=== PATIENT | female | born 1950 | race Caucasian/White ===

== ENCOUNTER → 2017-01-24 | Outpatient (CLI) | payer MEDICARE, OTHER ==
--- NOTE | 2017-01-24 11:34 | CT ---
EXAM DESCRIPTION: Abdomen/Pelvis w/wo Contrast CLINICAL HISTORY: GENERALIZED ABDOMINAL PAIN COMPARISON: None. TECHNIQUE: Pre and postcontrast CT images of the abdomen and pelvis are obtained. This exam was performed according to our departmental dose-optimization program, which includes automated exposure control, adjustment of the mA and/or kV according to patient size and/or use of iterative reconstruction technique . FINDINGS: The visualized lung bases show no acute findings. Liver is heterogeneous and mostly decreased attenuation compared to the spleen. Localized area of fat sparing in the region of the gallbladder fossa is seen. No focal hepatic mass is identified. Spleen, pancreas, adrenal glands, and gallbladder are unremarkable. Moderate atherosclerotic disease is seen. Kidneys show no abnormal calcifications. No ureteral obstruction is seen. Urinary bladder is contracted and not well evaluated. Small less than 1 cm fluid attenuation parapelvic cysts are seen in both kidneys. There is surgical absence of uterus. No abnormal adnexal masses seen. Appendix is normal. Small fat-containing umbilical hernia seen. No small bowel obstruction. The stomach is not well distended or evaluated. Moderate scattered diverticuli are seen throughout the entire colon. There is a localized area of bowel wall thickening associated with diverticulum in the left mid abdomen best seen on image 46 of series 4. Surrounding fat stranding is seen. No free intraperitoneal air or drainable fluid collection is seen at this time. No pathologic lymphadenopathy. Osseous structures show no aggressive bony lesions. Degenerative changes of the lumbar spine are seen. IMPRESSION: Extensive colon diverticulosis. Evidence of likely acute diverticulitis involving the mid left descending colon without complicating features at this time. Other findings as described in body of the report. Electronically signed by: Manpreet Conner MD 01/24/2017 11:32 AM CDT
== END ==
LOC: GMA 10:24
PROVIDERS: ATTEND Physician Assistant
DX: R10.84 Generalized abdominal pain (principal); K57.30 Diverticulosis of large intestine without perforation or abscess without bleeding; K42.9 Umbilical hernia without obstruction or gangrene

== ENCOUNTER 2017-04-12 05:53 | Day surgery (SDC) | payer MEDICARE, OTHER ==
[2017-04-12] MEDS ORDERED: LACTATED RINGERS 1,000 ML ONE (06:12)
[2017-04-12] MEDS ORDERED: PROPOFOL 200 MG/20 ML VIAL IV ONE (07:00)
[2017-04-12] MEDS ORDERED: LIDOCAINE 1% 10 ML VIAL INJ ONE (07:00)
[2017-04-12 08:47] VITALS: O2SAT 97
--- NOTE | 2017-04-12 08:53 | OP ---
DATE OF PROCEDURE: 04/12/17 PREPROCEDURE DIAGNOSIS: 1. History of diverticulitis. 2. This is the patient's first colonoscopy. POSTPROCEDURE DIAGNOSIS: 1. Multiple colonic polyps. 2. Rodríguez diverticulosis. 3. Internal hemorrhoids. PROCEDURE: 1. Colonoscopy with polypectomy. SURGEON: Rafael Cardenas MD. SEDATION: Monitored anesthesia care. ESTIMATED BLOOD LOSS: Less than 5 mL. PROCEDURE: Informed consent was obtained prior to sedation. The preprocedure cardiopulmonary assessment was satisfactory. The patient was brought to the Endoscopy Suite and placed in the left lateral decubitus position. The patient was then sedated by the anesthesia team. Digital rectal exam was unremarkable. The tip of the Olympus colonoscope was inserted into the rectum and advanced under direct visualization to the cecum as identified by the presence of the appendiceal orifice and ileocecal valve. Preparation of the colon was adequate. Upon reaching the cecum, the endoscope was slowly withdrawn from the patient with careful attention paid to the entire colonic mucosa for the identification of any flat polyps. There were two 4-mm polyps, which were sessile, in the cecum, and one 3-mm sessile polyp in the ascending colon. All three polyps were resected with cold snare polypectomy and retrieved. They were then sent for pathology analysis. Throughout the colon, there was marked diverticulosis. A retroflexed view of the anal verge showed small, non- bleeding internal hemorrhoids. The endoscope was then withdrawn from the patient and the procedure terminated. RECOMMENDATION: 1. Discharge the patient home with escort. 2. Advance to regular diet. 3. Continue present medications. 4. Followup pathology results. 5. Surveillance colonoscopy in three years' time. #[id number] [facility] SYSTEMNatalya
[2017-04-12 09:50] VITALS: BP 174/85; TEMP 98
[2017-04-12] MEDS ORDERED: MIDAZOLAM INJ 2 MG/2 ML VIAL IV ONE (10:00)
[2017-04-12] MEDS ORDERED: fentaNYL CITRATE INJ 50 MCG/ML AMP IV ONE (10:00)
== END 2017-04-12 09:05 | disposition home or self-care (01) ==
LOC: AMB 05:53
PROVIDERS: ATTEND Internal Medicine Gastroenterology
DX: D12.0 Benign neoplasm of cecum (principal); K64.8 Other hemorrhoids; K57.30 Diverticulosis of large intestine without perforation or abscess without bleeding; F41.9 Anxiety disorder, unspecified; I10 Essential (primary) hypertension; E78.5 Hyperlipidemia, unspecified; Z87.891 Personal history of nicotine dependence; Z88.8 Allergy status to other drugs, medicaments and biological substances; Z79.1 Long term (current) use of non-steroidal anti-inflammatories (NSAID); Z79.899 Other long term (current) drug therapy
CPT/HCPCS: 00810; 45385; 88305; J2250; J3010; J3490; J7120

== ENCOUNTER → 2017-08-01 | Outpatient (CLI) | payer MEDICARE, OTHER | LOC: GMAM 12:42 | PROVIDERS: ATTEND Family Medicine | DX: E53.8 Deficiency of other specified B group vitamins (principal) ==

== ENCOUNTER 2018-02-04 10:37 | Emergency (ER) | payer MEDICARE, OTHER ==
[2018-02-04] MEDS ORDERED: predniSONE 20 MG TAB PO ONE (11:09)
[2018-02-04] MEDS ORDERED: MECLIZINE HCL 12.5 MG TAB PO ONE (11:09)
[2018-02-04] MEDS ORDERED: ALPRAZolam 0.25 MG TAB PO ONE (11:09)
--- NOTE | 2018-02-04 11:18 | ED.PDOC ---
History of Present Illness - General Chief Complaint: General Stated Complaint: dizzy, feels jittery, off balance Time Seen by Provider: 02/04/18 10:44 Source: patient Exam Limitations: no limitations - History of Present Illness Initial Comments: the patient is a 67-year-old female presenting to emergency room secondary to another very brief episode of vertigo followed bysubsequent dizziness. The vertigo itself probably lasted less than a minute and she has had dizziness for the 15-20 minutes since it has occurred. She does not appear to be having true vertigo upon arrival here. She does not claim that she is currently having vertigo symptoms just dizziness at this point. No focal neurological changes otherwise. No abnormal nystagmus at this time. She has actually had multiple episodes of vertigo in the past and does follow Dr. Bates for this problem. She has had an MRI of the brain in 2016 for this problem that was essentially normal. She takes a Xanax nightly she says for this problem. She does have seasonal allergies and has recently had a seasonal allergy layer. Tympanic membranes are both 4 when she does have effusions behind both eardrums. She also did just recently have carotid Dopplers that were essentially normal according to her. Again physical exam shows no focal neurological deficits but she is obviously dizzy with walking. No focal weakness. No abnormal nystagmus. No vertical skew deviation. She does not have any headache or fever. She feels jittery and a little bit cold. She definitely has seasonal allergies flaring currently. It is possible she may also be starting to have an upper respiratory tract infection.the patient does have known vitamin B12 deficiency but is also receiving current supplementation in the form of routine injections. Timing/Duration: unsure Severity: moderate Improving Factors: nothing Worsening Factors: movement Associated Symptoms: denies symptoms Allergies/Adverse Reactions: Allergies Codeine Adverse Reaction (Verified 10/29/13 14:06) Propoxyphene [From Darvon] Adverse Reaction (Verified 04/10/17 09:48) Sulfa Antibiotics Adverse Reaction (Verified 10/29/13 14:06) Zinc Adverse Reaction (Verified 04/10/17 09:48) Home Medications: Ambulatory Orders Alprazolam [Alprazolam Odt] 0.25 mg PO BEDTIME 05/06/16 Benazepril & Hydrochlorothiazi [Benazepril HCl/Hydrochlor 20-25 mg] 1 tab PO BEDTIME 05/06/16 Cetirizine HCl [All Day Allergy] 10 mg PO BEDTIME 05/06/16 Estradiol 1 mg PO BEDTIME 05/06/16 Pravastatin Sodium [Pravachol] 80 mg PO BEDTIME 05/06/16 Calcium Carbonate-Vitamin D [Oscal 500/200 D-3] 1 tab PO BID 04/10/17 Ibuprofen 200 mg PO PRN PRN 04/10/17 Meclizine HCl [Meclizine 25] 25 mg PO Q6HRS PRN #30 tab 02/04/18 Review of Systems - Review of Systems Constitutional: States: no symptoms reported EENTM: States: nose congestion Respiratory: States: other - she does have a little hoarseneess which she both gets with her seasonal allergies and with colds Cardiology: States: no symptoms reported Gastrointestinal/Abdominal: States: no symptoms reported Genitourinary: States: no symptoms reported Musculoskeletal: States: no symptoms reported Skin: States: no symptoms reported Neurological: States: other - dizziness Endocrine: States: no symptoms reported All other Systems: No Change from Baseline Past Medical History (General) - Patient Medical History Hx Seizures: No Hx Stroke: No Hx Asthma: No Hx of COPD: No Hx Cardiac Disorders: No Hx Congestive Heart Failure: No Hx Pacemaker: No Hx Hypertension: Yes Hx Thyroid Disease: No Hx Diabetes: No Hx Cancer: No Hx MRSA: No Surgical History: Hysterectomy - Vaccination History Hx Tetanus, Diphtheria Vaccination: No Hx Influenza Vaccination: No Hx Pneumococcal Vaccination: Yes - Social History Hx Tobacco Use: Yes Hx Alcohol Use: Yes - occasional Hx Substance Use: No - Female History Patient is a Female of Child Bearing Age (10 -59 yrs old): No - Triage Comment ED Triage Comment: PT assisted to stretcher. Family Medical History - Family History Mother Hx Family Cancer: Yes Physical Exam - Physical Exam General Appearance: Alert, Anxious, No apparent distress Eye Exam: bilateral normal Ears, Nose, Throat: hearing grossly normal, normal pharynx, nasal congestion, other - bilateral tympanic membrane show increased pressure and air-fluid levels Neck: full range of motion, supple Respiratory: lungs clear, normal breath sounds, no respiratory distress, no accessory muscle use Cardiovascular/Chest: normal peripheral pulses, regular rate, rhythm, no edema Peripheral Pulses: radial,right: 2+, radial,left: 2+, dorsalis pedis,right: 2+, dorsalis pedis,left: 2+ Gastrointestinal/Abdominal: non tender, soft Rectal Exam: deferred Back Exam: normal inspection, no CVA tenderness, no vertebral tenderness Extremity: normal range of motion, non-tender, normal inspection, no pedal edema , no calf tenderness, normal capillary refill Neurologic: lapel stitcher II-XII nml as tested, no motor/sensory deficits, alert, normal mood/affect, oriented x 3 Skin Exam: normal color Comments: Vital Signs - 24 hr 02/04/18 10:53 Temperature 97.6 F Pulse Rate [ 81 Left Brachial] Respiratory 20 Rate Blood Pressure 135/87 [Left Arm] O2 Sat by Pulse 99 Oximetry Progress - Progress Progress: 02/04/18 12:22 the patient is a 67-year-old female presenting to the emergency room secondary to a recurrent episode of vertigo and itts residual dizziness. The vertigo had actually passed by the time she arrived here. She received a dose of oral Xanax and meclizine for the dizziness. After the patient was watched for several hours, she was doing much better. The patient has already been extensively worked up with Dr. Bates for the vertigo and it appears that labyrinthitis is the most likely cause, likely triggered by the allergies this time. She was given 1 dose of oral prednisone here. I'm going to write her for meclizine for as needed use for any recurrences. She does understand how to use this medication. She should contact Dr. Bates's office and let them know that she did have another episode. ER warnings were given for any significant worsening. Keep routine follow-up with primary care doctor for long -term medical problems including the B12 deficiency. - EKG/XRAY/CT CT Ordered: No CT Interpretation Call Back: No Departure - Departure Clinical Impression: Vertigo, Seasonal allergies Disposition: Discharge to Home or Self Care Condition: Good Departure Forms: ED Discharge - Pt. Copy, Patient Portal Self Enrollment Instructions: Labyrinthitis, Vertigo (a Type of Dizziness) (DC), Seasonal Allergies (DC) Diet: regular diet Activity: increase activity as tolerated Referrals: DALJIT SANTANA FNP [Primary Care Provider] - 1-2 Weeks Prescriptions: Meclizine HCl [Meclizine 25] 25 mg PO Q6HRS PRN #30 tab PRN Reason: Dizziness Home Medications: Ambulatory Orders Alprazolam [Alprazolam Odt] 0.25 mg PO BEDTIME 05/06/16 Benazepril & Hydrochlorothiazi [Benazepril HCl/Hydrochlor 20-25 mg] 1 tab PO BEDTIME 05/06/16 Cetirizine HCl [All Day Allergy] 10 mg PO BEDTIME 05/06/16 Estradiol 1 mg PO BEDTIME 05/06/16 Pravastatin Sodium [Pravachol] 80 mg PO BEDTIME 05/06/16 Calcium Carbonate-Vitamin D [Oscal 500/200 D-3] 1 tab PO BID 04/10/17 Ibuprofen 200 mg PO PRN PRN 04/10/17 Meclizine HCl [Meclizine 25] 25 mg PO Q6HRS PRN #30 tab 02/04/18 Additional Instructions: the patient is a 67-year-old female presenting to the emergency room secondary to a recurrent episode of vertigo and itts residual dizziness. The vertigo had actually passed by the time she arrived here. She received a dose of oral Xanax and meclizine for the dizziness. After the patient was watched for several hours, she was doing much better. The patient has already been extensively worked up with Dr. Bates for the vertigo and it appears that labyrinthitis is the most likely cause, likely triggered by the allergies this time. She was given 1 dose of oral prednisone here. I'm going to write her for meclizine for as needed use for any recurrences. She does understand how to use this medication. She should contact Dr. Bates's office and let them know that she did have another episode. ER warnings were given for any significant worsening. Keep routine follow-up with primary care doctor for long -term medical problems including the B12 deficiency.
[2018-02-04 11:51] VITALS: O2SAT 96
[2018-02-04 12:26] VITALS: BP 151/87; TEMP 97.8
== END 2018-02-04 12:39 | disposition home or self-care (01) ==
LOC: ER 10:37
DX: R42 Dizziness and giddiness (principal); J30.2 Other seasonal allergic rhinitis; I10 Essential (primary) hypertension; Z87.891 Personal history of nicotine dependence; Z79.899 Other long term (current) drug therapy; Z88.8 Allergy status to other drugs, medicaments and biological substances; Z88.2 Allergy status to sulfonamides; Z88.5 Allergy status to narcotic agent

== ENCOUNTER → 2018-02-07 | Outpatient (CLI) | payer MEDICARE, OTHER | LOC: GMAM 10:50 | PROVIDERS: ATTEND Family Medicine | DX: E53.8 Deficiency of other specified B group vitamins (principal); R42 Dizziness and giddiness ==

== ENCOUNTER → 2018-06-26 | Outpatient (CLI) | payer MEDICARE, OTHER | LOC: GMAM 10:49 | PROVIDERS: ATTEND Family Medicine | DX: E53.8 Deficiency of other specified B group vitamins (principal) ==

== ENCOUNTER → 2018-06-27 | Outpatient (CLI) | payer MEDICARE, OTHER ==
--- NOTE | 2018-06-27 16:25 | MRI ---
EXAM DESCRIPTION: Brain w/wo Contrast: Magnetic Resonance Imaging. CLINICAL HISTORY: 68 years Female VERTIGO COMPARISON: MRI scan of the brain without and with gadolinium IV contrast 12/09/2015. TECHNIQUE: Multiplanar, high-field MRI, multiple conventional sequences, without and with gadolinium IV contrast. No adverse reactions. Multiple axial diffusion sequences. FINDINGS: Bilateral multifocal hyperintense FLAIR and T2-weighted signal in the white matter lanza radiata extending from the basal ganglia to the bilateral centrum semiovale. Also bilateral hyperintense signal in the more superior subcortical white matter of the lanza radiata. Most of the abnormal signal in the basal ganglia is in the frontal lobes. No hemorrhage, no cerebral edema, no mass-effect, and no diffusion restriction. Normal contrast enhancement. Normal signal in the brainstem and cerebellar hemispheres. No hemorrhage, no cerebral edema, no mass-effect. Normal contrast enhancement. Concordance of the diffusion and non-diffusion sequences with no evidence of acute or subacute infarction. Cortical sulci, ventricles, and other CSF spaces, and the subdural spaces are normally configured for patients age.. No effacement or displacement. No midline shift. No extra-axial hemorrhage. Normal contrast enhancement. Normal flow signal void in the major vessels of the moapa Maier, and the venous sinuses. IACs are symmetric bilaterally. Normal signal and enhancement in the bilateral mastoid air cells. No mass effect in the bilateral Cerebellopontine angles. No fluid in the bilateral anterior inferior compartments. Normal contrast enhancement. Pituitary gland occupies all of the sella. Normal contrast enhancement. Base of the cerebellar tonsils is at the level of the foramen magnum. No significant mucoperiosteal thickening or abnormal contrast enhancement in the paranasal sinuses. The bony calvarium is intact. IMPRESSION: 1. 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 No abnormal contrast enhancement. No significant change since the prior study November 2015. Most likely related to cerebral microvascular disease and aging. Unlikely to represent chronic migraine headaches or vasculitis. 2. No fluid or mass effect in the cerebellopontine angles and inner ear compartments, or mastoid air cells. No abnormal contrast enhancement. 3. No significant or acute disease in the paranasal sinuses. Electronically signed by: Rubén Mullins MD 06/27/2018 4:23 PM [facility]
== END ==
LOC: MRI 10:00
PROVIDERS: ATTEND Family Medicine
DX: R42 Dizziness and giddiness (principal)

== ENCOUNTER → 2018-11-22 | Outpatient (CLI) | payer MEDICARE, OTHER | LOC: GMAM 15:11 | PROVIDERS: ATTEND Family Medicine | DX: E53.8 Deficiency of other specified B group vitamins (principal); I10 Essential (primary) hypertension ==

== ENCOUNTER 2019-11-25 10:00 | Inpatient (IN) | payer MEDICARE, OTHER ==
--- NOTE | 2019-11-25 11:03 | RAD ---
Study: Single Frontal Radiograph of the Chest. Indication:sob, dx covid 1 mo ago Comparison: None. Impression: Mild hepatomegaly. Patchy consolidative changes in the left midlung and bilateral lung bases concerning for pneumonia. COVID 19 could give this appearance. No pleural effusion or pneumothorax. No acute osseous abnormality. Electronically signed by: Vasu Rodriguez MD 11/25/2019 11:02 AM CDT
[2019-11-25] MEDS ORDERED: AZITHROMYCIN IV 500 MG in SODIUM CHLORIDE 0.9% 250ML 250 ML IVPB ONE (11:07)
[2019-11-25] MEDS ORDERED: cefTRIAXone SODIUM 1 GM in SODIUM CHL 0.9% 50ML MIN-BAG+ 50 ML IVPB ONE (11:07)
[2019-11-25] MEDS ORDERED: POTASSIUM CHLORIDE ELIXIR 20 MEQ/15 ML UD PO ONE (11:10)
[2019-11-25] MEDS ORDERED: ACETYLCYSTEIN 20 % 6,000 MG/30 ML VIAL PO ONE (11:11)
--- NOTE | 2019-11-25 13:29 | CT ---
Study: CT angiography of the chest, pulmonary embolus protocol. Indication: hypoxia, elevated ddimer, hx covid Technique: Axial CT images were acquired through the chest after intravenous administration of contrast utilizing the CT angiography, pulmonary embolus protocol. Computer-generated 3D reconstructions (MIPS) were performed and reviewed. This exam was performed according to our departmental dose-optimization program, which includes automated exposure control, adjustment of the mA and/or kV according to patient size and/or use of iterative reconstruction technique. Comparison: None. Findings: No central pulmonary embolus identified, however distal evaluation is limited due to pronounced respiratory motion artifact. Mild cardiomegaly. Scattered reactive size mediastinal and hilar lymphadenopathy. Tiny hiatal hernia. Patchy areas of mild consolidative changes throughout the bilateral lobes and predominantly in the peripheral aspects, left greater than right. The left upper and lower lobes are most predominantly involved. The findings are concerning for pneumonia. No pleural effusion or pneumothorax. Impression: No central pulmonary embolus identified, however evaluation limited due to significant respiratory motion artifact. Patchy consolidative changes bilateral lungs concerning for pneumonia. COVID 19 could give this appearance. Electronically signed by: Vasu Rodriguez MD 11/25/2019 1:28 PM CDT
[2019-11-25] MEDS ORDERED: DEXAMETHASONE 4 MG TAB PO ONE (13:43)
[2019-11-25] MEDS ORDERED: PENICILLIN BENZATHINE 1.2 MU 1.2 MU/2 ML SYG IM ONE (13:45)
[2019-11-25] MEDS ORDERED: SODIUM CHLORIDE 0.9% (FLUSH) 10 ML SYG IV PRN (13:45)
--- NOTE | 2019-11-25 13:46 | ED.PDOC ---
History of Present Illness - General Chief Complaint: Respiratory Problem Stated Complaint: dyspnea, positive COVID (1 month ago) Time Seen by Provider: 11/25/19 10:18 Source: patient Exam Limitations: no limitations - History of Present Illness Initial Comments: Patient is-69 year-old female presented emergency room after being sent over by her primary care doctor from clinic. The patient was apparently diagnosed with coronavirus about 3 to 4 weeks ago. The patient has had continued shortness of breath since that time. However over the last 2 days the patient has had increasing shortness of breath. Oxygen saturations on room air ranged from 86 to 90% here while she is awake and sitting up. The patient has scattered rails but no real increased work of breathing. She is alert and oriented. She is pleasant and cooperative. She has had a little more sputum production over the last few days as well.. No history of COPD. She did smoke distantly. She does report a very mild sore throat. Timing/Duration: unsure Severity: moderate Improving Factors: nothing Worsening Factors: nothing Associated Symptoms: malaise, shortness of breath Allergies/Adverse Reactions: Allergies Codeine Adverse Reaction (Verified 11/25/19 10:26) Propoxyphene [From Darvon] Adverse Reaction (Verified 11/25/19 10:26) Sulfa Antibiotics Adverse Reaction (Verified 11/25/19 10:26) Zinc Adverse Reaction (Verified 11/25/19 10:26) Home Medications: Ambulatory Orders Alprazolam [Alprazolam Odt] 0.25 mg PO BEDTIME 05/06/16 Benazepril & Hydrochlorothiazi [Benazepril HCl/Hydrochlor 20-25 mg] 1 tab PO BEDTIME 05/06/16 Cetirizine HCl [All Day Allergy] 10 mg PO BEDTIME 05/06/16 Estradiol 1 mg PO BEDTIME 05/06/16 Pravastatin Sodium [Pravachol] 80 mg PO BEDTIME 05/06/16 Calcium Carbonate-Vitamin D [Oscal 500/200 D-3] 1 tab PO BID 04/10/17 Ibuprofen 200 mg PO PRN PRN 04/10/17 Meclizine HCl [Meclizine 25] 25 mg PO Q6HRS PRN #30 tab 02/04/18 Review of Systems - Review of Systems Constitutional: States: malaise EENTM: States: throat pain - Mild Respiratory: States: cough, short of breath Cardiology: States: no symptoms reported Gastrointestinal/Abdominal: States: no symptoms reported Genitourinary: States: no symptoms reported Musculoskeletal: States: no symptoms reported Skin: States: no symptoms reported Neurological: States: no symptoms reported Endocrine: States: no symptoms reported All other Systems: No Change from Baseline Past Medical History (General) - Patient Medical History Hx Seizures: No Hx Stroke: No Hx Asthma: No Hx of COPD: No Hx Cardiac Disorders: No Hx Congestive Heart Failure: No Hx Pacemaker: No Hx Hypertension: Yes Hx Thyroid Disease: No Hx Diabetes: No Hx Cancer: No Hx MRSA: No Surgical History: no surgical history - Vaccination History Hx Tetanus, Diphtheria Vaccination: No Hx Influenza Vaccination: No Hx Pneumococcal Vaccination: Yes - Social History Hx Tobacco Use: Yes Hx Alcohol Use: Yes - occasional Hx Substance Use: No - Activities of Daily Living Hospice Agency (if applicable):: None - Female History Patient is a Female of Child Bearing Age (10 -59 yrs old): No Family Medical History - Family History Mother Hx Family Cancer: Yes Physical Exam - Physical Exam General Appearance: Alert, Comfortable, No apparent distress Eye Exam: bilateral normal Ears, Nose, Throat: hearing grossly normal, pharyngeal erythema - Mild Neck: full range of motion, supple Respiratory: no respiratory distress, no accessory muscle use, rales - Scattered and mild Cardiovascular/Chest: no edema Peripheral Pulses: radial,right: 2+, radial,left: 2+ Gastrointestinal/Abdominal: non tender, soft Rectal Exam: deferred Back Exam: no CVA tenderness, no vertebral tenderness Extremity: normal range of motion, non-tender, normal inspection, no pedal edema, normal capillary refill Neurologic: nurse sane II-XII nml as tested, alert, normal mood/affect, oriented x 3 Skin Exam: normal color Comments: Vital Signs - 24 hr 11/25/19 11/25/19 11/25/19 10:05 10:19 11:22 Temperature 98.8 F Pulse Rate [ 91 H 91 H brachial] Respiratory 20 20 Rate Blood Pressure 155/110 [Right Arm] O2 Sat by Pulse 94 L 93 L Oximetry Progress - Progress Progress: 11/25/19 13:48 The patient is a 69-year-old female presented emergency room secondary to progressive shortness of breath. The patient has scattered areas of consolidation in bilateral lung mccrary consistent with multifocal bilateral pneumonia. It is uncertain at this time whether this is directly due to the coronavirus that she tested positive for 3 or 4 weeks ago or whether she has a superimposed bacterial infection. Blood and sputum cultures are being done. She is receiving 1 dose of oral dexamethasone here. She is receiving a dose of Rocephin and azithromycin IV and also a dose of Bicillin IM for the strep throat. The patient is requiring supplemental oxygen at this time. Admit for continued care. imla tinsley [phone] - Results/Orders Results/Orders: CTA of the chest shows no evidence of any pulmonary embolus. She does have sca ttered pneumonia. See report for details. EKG shows normal sinus rhythm 82 bpm. Mild right axis deviation. Normal R wave progression. No definitive ST segment or T wave changes indicative of acute ischemia. Normal QT interval. Laboratory Tests 11/25/19 11/25/19 11/25/19 10:34 10:34 10:34 WBC 10.6 RBC 4.05 L Hgb 14.2 Hct 40.7 MCV 100.4 H MCH 35.0 H MCHC 34.9 RDW 14.0 Plt Count 355 MPV 7.5 Absolute Neuts (auto) 8.30 H Absolute Lymphs (auto) 1.30 Absolute Monos (auto) 0.90 H Absolute Eos (auto) 0.10 Absolute Basos (auto) 0.10 Neutrophils % 77.9 Lymphocytes % 12.2 L Monocytes % 8.8 Eosinophils % 0.5 L Basophils % 0.6 PT 10.7 INR 1.08 PTT (SP) 28.4 D-Dimer, Quantitative 3210.0 H* Sodium 138 Potassium 3.2 L Chloride 102 Carbon Dioxide 25 Anion Gap 14.2 BUN 10 Creatinine 0.97 BUN/Creatinine Ratio 10.3 Random Glucose 101 Serum Osmolality 274.9 L Calcium 8.9 Total Bilirubin 0.7 AST 25 ALT 21 Alkaline Phosphatase 56 Creatine Kinase 61 CK-MB (CK-2) 0.8 CK-MB (CK-2) % Not Reportable Troponin I < 0.02 B-Natriuretic Peptide 20.8 Serum Total Protein 7.7 Albumin 3.5 Globulin 4.2 H Albumin/Globulin Ratio 0.8 L Group A Strep Rapid 11/25/19 11:56 WBC RBC Hgb Hct MCV MCH MCHC RDW Plt Count MPV Absolute Neuts (auto) Absolute Lymphs (auto) Absolute Monos (auto) Absolute Eos (auto) Absolute Basos (auto) Neutrophils % Lymphocytes % Monocytes % Eosinophils % Basophils % PT INR PTT (SP) D-Dimer, Quantitative Sodium Potassium Chloride Carbon Dioxide Anion Gap BUN Creatinine BUN/Creatinine Ratio Random Glucose Serum Osmolality Calcium Total Bilirubin AST ALT Alkaline Phosphatase Creatine Kinase CK-MB (CK-2) CK-MB (CK-2) % Troponin I B-Natriuretic Peptide Serum Total Protein Albumin Globulin Albumin/Globulin Ratio Group A Strep Rapid Positive Departure - Departure Clinical Impression: COVID-19 Bilateral pneumonia Qualifiers: Pneumonia type: due to unspecified organism Lung location: unspecified part of lung Qualified Code(s): J18.9 - Pneumonia, unspecified organism Disposition: Admit Patient Condition: Poor Departure Forms: ED Discharge - Pt. Copy, Patient Portal Self Enrollment Referrals: DALJIT SANTANA FNP [Primary Care Provider] - 1-2 Weeks Home Medications: Ambulatory Orders Alprazolam [Alprazolam Odt] 0.25 mg PO BEDTIME 05/06/16 Benazepril & Hydrochlorothiazi [Benazepril HCl/Hydrochlor 20-25 mg] 1 tab PO BEDTIME 05/06/16 Cetirizine HCl [All Day Allergy] 10 mg PO BEDTIME 05/06/16 Estradiol 1 mg PO BEDTIME 05/06/16 Pravastatin Sodium [Pravachol] 80 mg PO BEDTIME 05/06/16 Calcium Carbonate-Vitamin D [Oscal 500/200 D-3] 1 tab PO BID 04/10/17 Ibuprofen 200 mg PO PRN PRN 04/10/17 Meclizine HCl [Meclizine 25] 25 mg PO Q6HRS PRN #30 tab 02/04/18 Decision To Admit - Decistion To Admit Decision to Admit Reason: Medical Nature Decision to Admit Date: 11/25/19 Decision to Admit Time: 13:49
[2019-11-25] MEDS ORDERED: IV SET AND CAP CHANGE INJ INJ SCH (14:00)
[2019-11-25] MEDS ORDERED: ENOXAPARIN SODIUM 60 MG/0.6 ML SYG SUBCU SCH (14:00)
[2019-11-25] MEDS ORDERED: DEXAMETHASONE INJ 4 MG/ML VIAL IV SCH (14:00)
--- NOTE | 2019-11-25 17:01 | HP ---
SUPERVISING PHYSICIAN: Abilio Chaudhary M.D. CHIEF COMPLAINT: Shortness of breath. HISTORY OF PRESENT ILLNESS: This is a 69 year-old female who was diagnosed with COVID-19 on November 07. She also had some Strep pharyngitis around that time as well. She was doing fairly well and started having some diarrhea from the Augmentin, so the Augmentin was stopped. However today, she came to the Emergency Room at the direction of her primary care physician. She was noted to be hypoxic with an O2 saturation from 86 to 90% on room air. She had scattered rales as well. She was alert in no distress. She had some labs in the Emergency Room showing a normal white count with no left shift. Coagulation studies showed a D-dimer of 3210. Chemistry with a low potassium of 3.2, otherwise unremarkable. She had a Strep screen which was positive. In the Emergency Room, she also had a CT angiogram of the chest which showed no pulmonary embolism, however there was patchy consolidations consistent with COVID-19. In the Emergency Room, she was given azithromycin, Ceftriaxone, Acetylcysteine. She was also given Bicillin due to the Strep pharyngitis. She was referred for admission. PAST MEDICAL HISTORY: 1. Hypertension. 2. Seasonal allergies. 3. Hyperlipidemia. 4. Osteoporosis. CURRENT MEDICATIONS: Please see the Med. Rec. list once it is verified in the computer. ALLERGIES: CODEINE, PROPOXYPHENE, SULFA AND ZINC. FAMILY HISTORY: Reviewed and noncontributory. SOCIAL HISTORY: No drinker, nonsmoker. No illicit drugs. REVIEW OF SYSTEMS: CONSTITUTIONAL: Positive for fever. No chills. No recent weight loss. Positive for some weakness. HEENT: Sore throat. No vision changes, ear pain, nasal congestion. RESPIRATORY: Positive for cough and shortness of breath. No hemoptysis. No pleuritic chest pain. CARDIOVASCULAR: No chest pain, palpitations or peripheral edema. GASTROINTESTINAL: No nausea, vomiting, diarrhea, constipation or abdominal pain. GENITOURINARY: No dysuria, frequency or flank pain. ENDOCRINE: No polydipsia, polyuria or polyphagia. No heat or cold intolerance. NEUROLOGIC: No seizures, paresthesias or syncope. HEMATOLOGIC: No easy bruising or transfusion reaction. PHYSICAL EXAMINATION: VITAL SIGNS: Blood pressure 155/110, heart rate 91, respiratory rate 20, temperature 98.8, oxygen saturation 94% on 2 liters. GENERAL: Ms. Manzano is a 69 year-old female who is in no active distress currently. HEENT: Normocephalic, atraumatic. PERRLA. EOMI. NECK: supple, midline trachea. No JVD. CHEST: Some scattered rales, otherwise clear, but there is no wheezing. CARDIOVASCULAR: Normal S1 and S2. No murmurs. ABDOMEN: Soft. Positive bowel sounds. No tenderness to palpation. GENITOURINARY: Exam is deferred. EXTREMITIES: Lower extremities with no edema. NEUROLOGIC: The patient is alert and oriented, no focal deficits. LABORATORY AND FILMS: Discussed in history of present illness. ASSESSMENT: 1. COVID-19 pneumonia. 2. Streptococcal pharyngitis. 3. Hypertension. 4. Hyperlipidemia. PLAN: The patient will be admitted to inpatient due to hypoxia. She is currently in no distress. I did discuss code status in the event that she did worsen and she stated she was a DNR and had it done on file up here. I placed her on azithromycin and Rocephin. I also placed her on therapeutic Lovenox due to the elevated D-dimer as well as scheduled Dexamethasone. Will put her on continuous heart monitor as well as continuous pulse oximetry. Repeat labs tomorrow. [facility][id number] [facility]
[2019-11-25] MEDS: DEXAMETHASONE INJ 4 MG/ML VIAL IV SCH (17:41)
[2019-11-25] MEDS: ENOXAPARIN SODIUM 60 MG/0.6 ML SYG SUBCU SCH (17:41)
[2019-11-26] MEDS ORDERED: PANTOPRAZOLE SODIUM IV 40 MG VIAL ONE (01:38)
[2019-11-26] MEDS ORDERED: DEXAMETHASONE INJ 10 MG/ML VIAL ONE (01:38)
[2019-11-26] MEDS ORDERED: ACETAMINOPHEN 325 MG TAB PO ONE (02:19)
[2019-11-26] MEDS: DEXAMETHASONE INJ 4 MG/ML VIAL IV SCH (02:26)
[2019-11-26] MEDS ORDERED: ALBUTEROL SULFATE 2.5 MG/3 ML VIAL NEB ONE (03:57)
[2019-11-26] MEDS: ENOXAPARIN SODIUM 60 MG/0.6 ML SYG SUBCU SCH (05:16)
--- NOTE | 2019-11-26 07:08 | RAD ---
EXAM: XR Chest, 1 View CLINICAL HISTORY: The patient is 69 years old and is Female; pneumonia TECHNIQUE: Single upright portable view of the chest. COMPARISON: November 25, 2019 10:47 AM. FINDINGS: Lungs: Left-sided infiltrates again noted, not significantly changed. Pleural space: No pleural effusion or pneumothorax. Heart: Unremarkable. No cardiomegaly. Mediastinum: Unremarkable. Bones/joints: The bones and joints are unchanged as visualized. Upper abdomen: No free air in the visualized upper abdomen. IMPRESSION: Left-sided infiltrates again noted, not significantly changed. Electronically signed by: Kennedi Barber MD 11/26/2019 7:06 AM CDT
--- NOTE | 2019-11-26 08:27 | PN ---
DATE: 11/26/19 SUBJECTIVE: The patient today is still short of breath. She does state she feels better than she did yesterday. She denies any chest pain, no nausea or vomiting overnight. OBJECTIVE: VITAL SIGNS : Temperature 97.8, pulse 74, blood pressure 137/68, respiratory rate 18, oxygen saturation 91% on 4 liters by nasal cannula. HEENT: Unremarkable. CHEST: Diminished throughout with audible rales. HEART: Regular rate and rhythm. ABDOMEN: Benign. EXTREMITIES: No edema. LABORATORY: White blood cell count down from 10.6 to 6.4, hemoglobin 13.3, hematocrit 37.9, platelet count 325. Lymphocyte manual count is 13 and consistent with yesterday's count. Chemistry shows sodium 137, potassium 3.8, chloride 103, CO2 22. D-dimer was not repeated today. It will be repeated tomorrow. She did have a rapid strep test that was positive as well yesterday. ASSESSMENT: 1. COVID-19 pneumonia. 2. Streptococcal pharyngitis. 3. Hypertension. 4. Hyperlipidemia. PLAN: We will continue our present care with oxygen support, IV steroids. The patient is a DNR. We will continue azithromycin and Rocephin. We will continue Lovenox. We will continue dexamethasone. #[id number] [facility]
[2019-11-26] MEDS: DEXAMETHASONE INJ 10 MG/ML VIAL IV SCH ×2 (09:52→17:11)
[2019-11-26] MEDS: LISINOPRIL 10 MG TAB PO SCH (09:52)
[2019-11-26] MEDS: ALBUTEROL SULFATE 2.5 MG/3 ML VIAL NEB SCH ×2 (09:58→20:51)
[2019-11-26] MEDS: cefTRIAXone SODIUM 1 GM in SODIUM CHL 0.9% 50ML MIN-BAG+ 50 ML IVPB SCH (12:15)
[2019-11-26] MEDS: AZITHROMYCIN IV 500 MG in SODIUM CHLORIDE 0.9% 250ML 250 ML IVPB SCH (13:06)
[2019-11-26] MEDS: ENOXAPARIN SODIUM 80 MG/0.8 ML SYG SUBCU SCH (17:15)
[2019-11-26] MEDS ORDERED: LEVALBUTEROL NEBS 1.25 MG/3 ML VIAL NEB PRN ×2 (21:00)
[2019-11-27] MEDS ORDERED: DEXAMETHASONE INJ 4 MG/ML VIAL ONE (02:58)
[2019-11-27] MEDS: DEXAMETHASONE INJ 10 MG/ML VIAL IV SCH ×2 (03:00→09:27)
[2019-11-27] MEDS: ENOXAPARIN SODIUM 80 MG/0.8 ML SYG SUBCU SCH ×2 (06:30→17:53)
[2019-11-27] MEDS: LISINOPRIL 10 MG TAB PO SCH (09:27)
[2019-11-27] MEDS: cefTRIAXone SODIUM 1 GM in SODIUM CHL 0.9% 50ML MIN-BAG+ 50 ML IVPB SCH (10:38)
[2019-11-27] MEDS: AZITHROMYCIN IV 500 MG in SODIUM CHLORIDE 0.9% 250ML 250 ML IVPB SCH (11:27)
[2019-11-27] MEDS: LEVALBUTEROL NEBS 1.25 MG/3 ML VIAL NEB SCH ×3 (12:00→20:48)
[2019-11-28] MEDS: ENOXAPARIN SODIUM 80 MG/0.8 ML SYG SUBCU SCH (05:30)
--- NOTE | 2019-11-28 07:11 | RAD ---
EXAMINATION: Chest x-ray one view. INDICATION: Covid pneumonia COMPARISON: November 26, 2019 TECHNIQUE: Frontal radiograph chest. FINDINGS: Overlying EKG leads and wires obscure portions of the lungs. The cardiac silhouette is unchanged. Patchy airspace opacities are present throughout the left lung, slightly improved when compared to prior. There is no pneumothorax. IMPRESSION: Patchy airspace opacities are present throughout the left lung, slightly improved from prior. Electronically signed by: Konstantin Lomas MD 11/28/2019 7:09 AM CDT
--- NOTE | 2019-11-28 07:54 | PN ---
SUPERVISING PHYSICIAN: Abilio Chaudhary MD DATE: 11/27/19 SUBJECTIVE: The patient is sitting on the floor in her room. She is dressed and ready to leave. She is slightly confused, but mostly she does not like being alone in her room. She does have some complaints of shortness of breath, but has improved since admission. She just wants to go home. I have discussed with her that she will need to stay until her labs improve as well as her clinical appearance. She has agreed to stay in the hospital. OBJECTIVE: VITAL SIGNS: Temperature 97.9, heart rate 90, blood pressure 167/85, respiratory rate 18, O2 saturation 92% on 3.5 liters nasal cannula. RESPIRATORY: Diminished breath sounds throughout. No rales or rhonchi noted. CARDIAC: Regular rate and rhythm. GASTROINTESTINAL: Abdomen is soft, nondistended, nontender. Bowel sounds are positive. NEUROLOGIC: Awake and alert. She is slightly confused, but oriented to person and place. LABORATORY: WBCs 16,400, hemoglobin 13.2, hematocrit 38.5. She has a left shift on her differential. Lymphocytes are low at 4.5%. D-dimer is 982. Electrolytes are basically within normal limits. Preliminary show no growth at 48 hours. All other labs and films have been reviewed via the EMR. ASSESSMENT: 1. COVID-19 pneumonia. 2. Streptococcal pharyngitis. 3. Hypertension. 4. Hyperlipidemia. PLAN: We will continue present supportive care including her oxygen therapy, IV steroids and antibiotics. With exertion, she desats to mid eighties even on oxygen, and does take her a few minutes, at rest, to rebound to the low to mid 90s. It does tI have ordered lab for in the morning. We will continue aggressive pulmonary hygiene. Hopefully, in the next day or two she can go home as she is quite ready. We will need to discuss with her care at discharge. She may need home health at least for followup. We will continue to monitor the patient closely and follow as needed. #[id number] [facility]
[2019-11-28] MEDS ORDERED: POTASSIUM CHLORIDE 20 MEQ TAB PO ONE (08:17)
[2019-11-28] MEDS ORDERED: DEXAMETHASONE INJ 10 MG/ML VIAL IV SCH (09:00)
[2019-11-28] MEDS: LEVALBUTEROL NEBS 1.25 MG/3 ML VIAL NEB SCH (09:00)
[2019-11-28] MEDS: LISINOPRIL 10 MG TAB PO SCH (09:20)
[2019-11-28] MEDS: cefTRIAXone SODIUM 1 GM in SODIUM CHL 0.9% 50ML MIN-BAG+ 50 ML IVPB SCH (09:21)
[2019-11-28 12:09] VITALS: BP 113/76; TEMP 98.1; O2SAT 98
--- NOTE | 2019-11-28 17:47 | DS ---
SUPERVISING PHYSICIAN: Abilio Chaudhary M.D. ADMISSION DIAGNOSIS: 1. Sepsis related to COVID-19 pneumonia. She had a temperature of 100.6, heart rate of 91 to 100, O2 saturations of 86%. WBCs were 10.6. She had leukopenia. D-dimer was 3,210. 2. Streptococcal pharyngitis. 3. Hypertension. 4. Hyperlipidemia. DISCHARGE DIAGNOSIS: 1. COVID-19 pneumonia. 2. Continued hypoxia requiring oxygen supplementation. 3. Streptococcal pharyngitis. 4. Hypertension. 5. Hyperlipidemia. HISTORY OF PRESENT ILLNESS: This is a 69 year-old female who was diagnosed with COVID-19 on November 07. She also had Strep pharyngitis around that time as well. She had been doing fairly well but had some diarrhea from her Augmentin. The Augmentin was stopped. She came to the Emergency Room at the direction of her primary care physician, Dr. Perla. She was noted to be hypoxic with an O2 saturation from 86 to 90% on room air. She had scattered rales as well. She had some labs in the Emergency Room showing a normal white count with no left shift. Coagulation studies showed a D-dimer of 3210. Low potassium of 3.2, otherwise her chemistries were unremarkable. Her Strep screen was positive. She had a CT angiogram which showed no pulmonary embolism, however there was a patchy consolidation consistent with COVID-19. In the Emergency Room, she was given azithromycin, Ceftriaxone, Acetylcysteine. She was also given Bicillin due to the Strep pharyngitis and was admitted to the hospital. HOSPITAL COURSE: The patient was admitted to the hospital for sepsis related to COVID-19 and hypoxia. She was started on the COVID-19 guidelines which included Rocephin and azithromycin as well as Decadron and Lovenox. She had p.r.n. and scheduled breathing treatments and her heart was monitored. Labs were repeated. Her vital signs improved as well as her laboratory studies. She was unable to be weaned off of the oxygen and sitting on the bed with any sort of exertion. Her O2 saturations dropped into the mid 80s on oxygen at rest. It continued to take her several minutes to rebound to get her oxygen saturations in the low 90s. She did have about a 24 hour period that she was confused and actually wanted to go home at one point in spite of recommending to stay here. That resolved within 24 hours. At this time she is alert and oriented. Other than her oxygen saturations dropping with any exertion, she has stabilized and will be discharged home. LABORATORY: Her initial WBC was 10,600 and then it did go as high at 16,400 and today is 11,700. Hemoglobin and hematocrit are stable at 12.7 and 38. She was admitted with lymphocytes of 12.2. They continued to be low with her final lymphocytes showing 10.6%. D-dimer did start at 3,210 and today is 589. Fibrinogen was 340 and PT and PTT were both within normal limits. Electrolytes were basically stable with the exception of her potassium was low on admission and required supplementation. Today it was also 3.4 and she received supplementation. C reactive protein was normal at 0.5 with a troponin of 0.02 and her liver enzymes were within normal limits. She did have a mild urinary tract infection, including 3 to 5 urine WBCs, a small amount of urine bilirubin and 15 of urine ketones. Preliminary blood cultures show no growth. Final chest x-ray showed patchy airspace opacities are present throughout the left lung, but are improved from prior. DISCHARGE PLAN: The patient will be discharged home in stable condition. She is to resume her previous diet and increase her activity as tolerated. In addition to her routine home medications, she is to have Albuterol sulfate inhaler, Eliquis for 30 days, 4 days of azithromycin and 8 days of Cefdinir as well as 6 additional tabs of Dexamethasone. I have given the patient a prescription for Eliquis but did not send it to the Pharmacy as I have given her 2 weeks of Eliquis samples. She sees Dr. Perla on followup. He can either write her a prescription for 2 additional weeks of Eliquis or give her samples at that time. She is to go to [facility] for a chest x-ray and lab on 12/02/19 at 8:45 AM. She will have a Telemedicine visit with Dr. Perla on 12/03/19 at 11:15. She was given instructions for her televisit as well as her lab appointment. I have encouraged her to continue to use her incentive spirometry as well as self proning. We were unable to get her oxygen oxygen approved, but it was finally sent to [facility] in [place] and she has been approved for home oxygen. She is to return to the hospital or followup with Dr. Perla for any problems or complications. DISCHARGE MEDICATIONS: 1. Pravastatin. 2. Estradiol. 3. Cetirizine. 4. Benazepril and Hydrochlorothiazide. 5. Alprazolam. 6. Ibuprofen. 7. Calcium carbonate Vitamin D. 8. Meclizine. 9. ProAir HFA. 10. Eliquis. 11. Azithromycin. 12. Cefdinir. 13. Dexamethasone. #[id number] [facility]
== END 2019-11-28 14:40 | disposition home or self-care (01) | DRG 871 ==
LOC: ER 10:00 → MS 16:59 → OBSVTOIN 16:59 → MS 11-28 08:30
PROVIDERS: ADMIT Nurse Practitioner; ATTEND Nurse Practitioner Acute Care
PROC: B32S1ZZ Computerized Tomography (CT Scan) of Right Pulmonary Artery using Low Osmolar Contrast (ICD-10-PCS; principal; 2019-11-25)
PROC: B32T1ZZ Computerized Tomography (CT Scan) of Left Pulmonary Artery using Low Osmolar Contrast (ICD-10-PCS; 2019-11-25)
DX: A41.89 Other specified sepsis (principal); U07.1 COVID-19; J12.89 Other viral pneumonia; N39.0 Urinary tract infection, site not specified; J15.9 Unspecified bacterial pneumonia; R09.02 Hypoxemia; J02.0 Streptococcal pharyngitis; I10 Essential (primary) hypertension; E78.5 Hyperlipidemia, unspecified; E87.6 Hypokalemia; M81.0 Age-related osteoporosis without current pathological fracture; Z88.2 Allergy status to sulfonamides; Z88.5 Allergy status to narcotic agent; Z88.8 Allergy status to other drugs, medicaments and biological substances; Z66 Do not resuscitate; Z87.891 Personal history of nicotine dependence; Z79.1 Long term (current) use of non-steroidal anti-inflammatories (NSAID); Z79.899 Other long term (current) drug therapy

== ENCOUNTER → 2019-12-04 | Outpatient (CLI) | payer MEDICARE, OTHER | LOC: GMAM 14:24 | PROVIDERS: ATTEND Family Medicine | DX: U07.1 COVID-19 (principal); R09.02 Hypoxemia ==

== ENCOUNTER → 2020-01-17 | Outpatient (CLI) | payer MEDICARE, OTHER | LOC: GMAM 13:05 | PROVIDERS: ATTEND Family Medicine | DX: R53.83 Other fatigue (principal) ==

== ENCOUNTER → 2020-03-06 | Outpatient (CLI) | payer MEDICARE, OTHER | LOC: GMAM 13:27 | PROVIDERS: ATTEND Family Medicine | DX: I10 Essential (primary) hypertension (principal); E53.8 Deficiency of other specified B group vitamins; E78.00 Pure hypercholesterolemia, unspecified ==